=== PATIENT | female | born 1940 | race Caucasian/White ===

== ENCOUNTER 2019-04-14 13:13 | Inpatient (IN) ==
[2019-04-14 14:22] LABS: URINE SOURCE CATH
[2019-04-14 14:25] LABS: BILIRUBIN URINE NEGATIVE (NEGATIVE); BLOOD URINE NEGATIVE (NEGATIVE); COLOR YELLOW; GLUCOSE URINE NEGATIVE (NEGATIVE); KETONE URINE NEGATIVE (NEGATIVE); LEUKOCYTES URINE NEGATIVE (NEGATIVE); NITRITE URINE NEGATIVE (NEGATIVE); PH URINE 6.5; PROTEIN URINE 50 mg/dL (NEGATIVE); SP GRAVITY URINE 1.023; TURBIDITY URINE CLEAR (CLEAR); UROBILINOGEN URINE NORMAL (NORMAL)
[2019-04-14 14:26] LABS: UR EPITHELIAL CELLS <10 /HPF (<10); URINE BACTERIA NEGATIVE /HPF; URINE RBC <10 /HPF (<10); URINE WBC <10 /HPF (<10)
[2019-04-14 14:37] LABS: BASO# 0.03 X1000 (0.0-0.2); BASO% 0.1 % (0.0-0.8); EOS# 0.01 X1000 (0.0-0.7); HEMATOCRIT 40.6 % (37.0-47.0); IMM GRAN# 0.15 X1000 (0.0-0.04); IMM GRAN% 0.7 % (0.0-0.5); LYMPH# 1.58 X1000 (1.2-3.4); LYMPH% 7.1 % (20.5-51.1); MCH 28.6 PG (27-31); MCV 89.4 FL (81-99); MONO# 2.03 X1000 (0.11-0.59); MONO% 9.2 % (1.7-9.3); MPV 10.5 FL (7.4-10.4); NEUT# 18.31 X1000 (1.4-6.5); NEUT% 82.9 % (42.2-75.2); PLT 387 X1000 (130-400); RBC 4.54 XMIL (4.2-5.4); RDW 13.8 % (11.5-14.5); WBC 22.11 X1000 (4.8-10.8)
[2019-04-14 14:38] LABS: ANISOCYTOSIS 1+; INR 0.83; LYMPHS 7 % (21-51); MONO 9 % (1-9); PROTIME 11.8 Seconds (11.0-16.0); PTT 26.9 Seconds (22.3-41.8); SEGS 84 % (42-75)
--- NOTE | 2019-04-14 14:41 | Diag Imaging Result Doc PS360 ---
EXAM: CHEST-1 VIEW 04/14/2019 HISTORY: sepsis protocol TECHNIQUE: Erect AP portable at 1432 COMMENT: There is platelike opacity in the area of the lingula which has not changed since 09/19/2016 and is presumably due to fibrosis. Otherwise the appearance of the chest has not changed significantly. IMPRESSION: Stable chest. Electronically signed by Dontrell Yin 04/14/2019 2:38 PM
[2019-04-14 14:46] LABS: ESTIMATED GFR 53
[2019-04-14 15:15] LABS: AGAP 15; ALBUMIN 4.5 g/dL (3.5-5.0); ALKALINE PHOSPHATASE 92 U/L (32-104); BUN 27 mg/dL (8-22); CALCIUM 9.9 mg/dL (8.8-10.2); CHLORIDE 98 mmol/L (98-107); CK PROFILE 53 U/L (24-173); COSMO 289; GLUCOSE 139 mg/dL (70-104); GOT 13 U/L (10-30); GPT < 5 U/L (10-36); POTASSIUM 3.8 mmol/L (3.5-5.1); SODIUM 141 mmol/L (136-145); TCO2 28 mmol/L (25-35)
--- NOTE | 2019-04-14 15:41 | Diag Imaging Result Doc PS360 ---
EXAM: US ABDOMEN-COMPLETE HISTORY: pain TECHNIQUE: Abdominal ultrasound COMPARISON: CT from 01/18/2017 FINDINGS: The pancreas is obscured. There is fatty infiltration of the liver. It is difficult to penetrate the liver. The gallbladder is distended and contains a stone measuring at least 2.3 cm. The gallbladder wall is not thickened. The common bile duct measures 4 mm. Normal kidneys. No hydronephrosis. No splenomegaly. No ascites. The aorta and inferior vena cava are poorly seen. IMPRESSION: 1.Cholelithiasis 2.Fatty infiltration of the liver Electronically signed by Danny Shelton 04/14/2019 3:38 PM
[2019-04-14] MEDS ORDERED: ZOFRAN IV PRN (17:10)
[2019-04-14] MEDS ORDERED: SODIUM CHLORIDE 0.9% INJ SCH (17:15)
[2019-04-14] MEDS ORDERED: DEMEROL IV PRN (17:33)
[2019-04-14] MEDS: PROTONIX IV SCH (18:11)
[2019-04-14] MEDS: ZOSYN 3.375 GM in NS 50 ML IV SCH (18:16)
[2019-04-14] MEDS: NS 1,000 ML IV SCH (18:53)
--- NOTE | 2019-04-14 21:33 | HISTORY AND PHYSICAL ---
CHIEF COMPLAINT: Right upper quadrant pain. HISTORY OF PRESENT ILLNESS: This is a 79-year-old female who is a resident at [facility], in rehab secondary to an acute CVA. She presents to the ER with right upper quadrant pain, nausea and vomiting that started early in the morning, that was unrelieved by Zofran. She was found to have a white count of 20,000; therefore, she was sent to the emergency room for evaluation. Of note, she just finished 10 days of Levaquin for a urinary tract infection, although we do not have culture and sensitivity in our records. PAST MEDICAL HISTORY: 1. Recent CVA with left-sided weakness. 2. Gastroesophageal reflux disease. 3. Hyperlipidemia. 4. Hypertension. 5. Parkinson disorder. 6. Cardiomegaly. PAST SURGICAL HISTORY: Total hip and total knee replacements. SOCIAL HISTORY: She denies alcohol, tobacco or illicit drug use. She is a resident at [facility], in rehab. ALLERGIES: Codeine which causes nausea and vomiting. HOME MEDICATIONS: A list will be obtained by the nursing staff, and once verified we will review and restart as appropriate. REVIEW OF SYSTEMS: Discussed with the patient, with pertinent positives stated in the HPI. She denied any syncope, dizziness, chest pain, palpitations, any diarrhea or constipation, or any black or bloody vomitus or stools. PHYSICAL EXAMINATION: GENERAL: This is a 79-year-old female who is sitting up on the bed in the emergency room in no distress. VITAL SIGNS: Blood pressure is 177/89 with a heart rate of 97, respirations are 20, temperature is 98.4 degrees with O2 saturations 94% to 96%. EYES: Pupils are equal, round and react to light. EOMs are intact. Sclerae are anicteric. HEENT: Head is normocephalic, atraumatic. Mucous membranes are dry. NECK: Supple, with trachea midline. CARDIOVASCULAR: S1 and S2 appreciated. No murmur. Calves are nontender bilateral. PULMONARY: Breath sounds are clear with no increased work of breathing noted. Chest rises and falls symmetrically with respiration. GASTROINTESTINAL: Abdomen is soft. She is tender at the epigastric to right upper quadrant region, with bowel sounds in all 4 quadrants. NEUROLOGIC: She is alert and oriented. SKIN: Warm and dry. LABORATORY DATA: WBC is 22 with a hemoglobin of 13, hematocrit 40.6 and platelets 387,000. INR 0.83. Sodium is 141, potassium 3.8, BUN 27, creatinine 1 with a glucose of 139. Urinalysis is essentially negative. DIAGNOSTIC DATA: 1. Abdominal ultrasound reveals cholelithiasis. Gallbladder is distended, contains a stone measuring at least 2.3 cm. Gallbladder wall is not thickened. Common bile duct measures 4 mm. She has fatty infiltration of the liver. 2. Chest x-ray reveals stable chest. She has platelike opacity in the area of the lingula which has not changed since 2017, and is presumably due to fibrosis. ASSESSMENT: 1. Right upper quadrant pain. 2. Nausea and vomiting. 3. Leukocytosis. 4. Cholelithiasis with distended gallbladder. 5. Recent cerebrovascular accident with left-sided weakness. 6. Parkinson disorder. 7. Hypertension. 8. Recent urinary tract infection, with recent antibiotics. PLAN: The patient will be admitted and transferred to [facility]. Dr. Ham will be consulted. She will remain NPO until evaluated by Dr. Ham. We will give IV hydration with Zofran for nausea and Demerol for pain. We will continue with IV hydration. Antibiotic coverage of Zosyn. Further antibiotics will be culture-driven. Although urinalysis appears to be normal, we will order a urine culture as the patient has just completed 10 days of Levaquin for a UTI. Protonix IV. Check a CBC and CMP in the morning. Further treatments pending hospital course. Plan was discussed with Dr. Moran. Dictated by JEREMY Edward for Ricardo Moran MD cc: JEREMY Edward MD
--- NOTE | 2019-04-15 00:03 | HISTORY AND PHYSICAL ---
ADDENDUM: Patient seen and examined by myself. Full note dictated and discussed with nurse practitioner. Patient was just recently in the hospital with stroke-like symptoms and transitioned to [facility] for rehab. She started having abdominal pain, right upper quadrant pain last night. Currently, she has acute cholecystitis and therefore will be transitioned to [facility] for surgical input. Her blood pressures are elevated. We will start medications and we will get her blood pressure under control. Please see full note. cc: Ricardo Moran MD
[2019-04-15] MEDS: ZOSYN 3.375 GM in NS 50 ML IV SCH ×5 (00:58→23:50)
[2019-04-15 00:59] LABS: URINE SOURCE CATH
[2019-04-15 01:04] LABS: BILIRUBIN URINE NEGATIVE (NEGATIVE); BLOOD URINE TRACE (NEGATIVE); COLOR YELLOW; GLUCOSE URINE NEGATIVE (NEGATIVE); KETONE URINE NEGATIVE (NEGATIVE); LEUKOCYTES URINE NEGATIVE (NEGATIVE); NITRITE URINE NEGATIVE (NEGATIVE); PH URINE 6.5; PROTEIN URINE 50 mg/dL (NEGATIVE); SP GRAVITY URINE 1.024; TURBIDITY URINE CLEAR (CLEAR); UROBILINOGEN URINE NORMAL (NORMAL)
[2019-04-15 01:05] LABS: UR EPITHELIAL CELLS <10 /HPF (<10); URINE BACTERIA 1+ /HPF; URINE RBC <10 /HPF (<10); URINE WBC <10 /HPF (<10)
[2019-04-15] MEDS: NS 1,000 ML IV SCH ×4 (03:05→22:23)
[2019-04-15 08:38] LABS: ALB/GLOB RATIO 1.3; ALBUMIN 3.8 g/dL (3.5-5.0); CALCIUM 9.1 mg/dL (8.8-10.2); POTASSIUM 4.3 mmol/L (3.5-5.1); TOTAL BILIRUBIN 0.58 mg/dL (0.20-1.00); TOTAL PROTEIN 6.8 g/dL (6.3-8.3)
[2019-04-15 09:03] LABS: BASO# 0.03 X1000 (0.0-0.2); BASO% 0.1 % (0.0-0.8); EOS# 0.11 X1000 (0.0-0.7); EOS% 0.5 % (0.0-10.0); HEMATOCRIT 40.1 % (37.0-47.0); HEMOGLOBIN 12.6 g/dL (12.0-16.0); IMM GRAN# 0.15 X1000 (0.0-0.04); IMM GRAN% 0.7 % (0.0-0.5); LYMPH# 1.95 X1000 (1.2-3.4); LYMPH% 9.7 % (20.5-51.1); MCH 28.5 PG (27-31); MCHC 31.4 g/dL (33-37); MCV 90.7 FL (81-99); MONO# 1.67 X1000 (0.11-0.59); MONO% 8.3 % (1.7-9.3); MPV 10.6 FL (7.4-10.4); NEUT# 16.12 X1000 (1.4-6.5); NEUT% 80.7 % (42.2-75.2); PLT 327 X1000 (130-400); RBC 4.42 XMIL (4.2-5.4); WBC 20.03 X1000 (4.8-10.8)
[2019-04-15] MEDS ORDERED: MORPHINE IV PRN (11:09)
[2019-04-15 11:31] LABS: HYPOCHROM 2+; LYMPHS 12 % (21-51); MONO 8 % (1-9); SEGS 80 % (42-75)
[2019-04-15 11:32] LABS: ANISOCYTOSIS 1+; LARGE PLATELETS OCCASIONAL
[2019-04-15] MEDS ORDERED: SINEMET 25/100 PO SCH (11:45)
[2019-04-15] MEDS ORDERED: SINEMET CR 25/100 PO SCH (14:00)
[2019-04-15] MEDS: SINEMET 25/100 PO SCH ×3 (15:36→23:50)
--- NOTE | 2019-04-15 17:39 | PROGRESS NOTE ---
DATE: 04/15/2019 INTERVAL HISTORY: The patient's right upper quadrant pain currently resolved. No further nausea or vomiting. No acute events overnight. No new complaints. REVIEW OF SYSTEMS: Twelve-point review of systems negative except as per interval history. LABORATORY DATA: WBC 20.0, hemoglobin 12.6, hematocrit 40.1, platelets 327,000. Sodium 143, potassium 4.3, bicarbonate 26, BUN 22, creatinine 1, glucose 121. Urinalysis essentially unremarkable. OBJECTIVE: Vital signs: T-max 99 degrees, pulse 87, respirations 16, blood pressure 163/76, O2 saturation 97% on room air.General: No acute distress. HEENT: Normocephalic, atraumatic. Moist mucous membranes. Cardiovascular: Regular rate and rhythm. No murmurs noted. Pulmonary: Clear to auscultation bilaterally. No wheezing, rales or rhonchi. Abdomen soft. Minimal epigastric to right upper quadrant tenderness. Bowel sounds positive. Extremities: Peripheral pulses intact. No clubbing or cyanosis. Neurologic: Cranial nerves grossly intact. Minimal left-sided weakness, but no new focal deficits. Psychiatric: Normal mood and affect. Awake, alert and oriented x3. ASSESSMENT AND PLAN: 1. Right upper quadrant pain, possible cholecystitis versus biliary colic. Liver function tests remain normal. Imaging showing fatty liver and significant cholelithiasis, with some distention of the gallbladder but no thickening or pericholecystic fluid, or dilated ducts. The patient's pain is currently resolved. Uncertain if this is early cholecystitis versus biliary colic. Surgery on board. Planning for HIDA scan tomorrow with possible surgery on Wednesday, depending on how she does and what her HIDA scan looks like. Given leukocytosis, we will continue antibiotics with Zosyn for now. 2. Fatty liver, aware. 3. Recent cerebrovascular accident. We will hold aspirin for now in case she goes to surgery, but as soon as we know one way or the other or shortly after surgery, we will restart aspirin. 4. Hypertension. Holding home hydrochlorothiazide currently until we are sure that she is not going to have any further vomiting. Monitor blood pressure. 5. Hyperlipidemia. Continue atorvastatin. 6. Parkinson disease. Continue home Sinemet. 7. Gastroesophageal reflux disease. Continue proton pump inhibitor.
[2019-04-15] MEDS: EFFEXOR XR PO SCH (17:58)
[2019-04-15] MEDS: PROTONIX IV SCH (17:58)
--- NOTE | 2019-04-15 19:17 | GENERAL SURGERY CONSULTATION ---
DATE: 04/15/2019 REASON FOR CONSULTATION: Acute cholecystitis. HISTORY OF PRESENT ILLNESS: This is a 79-year-old female who is resident [facility] secondary to recent acute stroke. She has only been there for a few weeks and began having right upper quadrant pain with nausea and vomiting over the last couple of days. She was brought to the emergency room for further evaluation and found to have a white count of 20,000. An ultrasound revealed a distended gallbladder with a large gallstone and she was admitted for further evaluation and care. She also apparently just finished a course of Levaquin for UTI. Apparently overnight she has become more disoriented and could not give me any significant history so all my history is by phone consultation with the ER physician and the hospitalist history and physical. PAST MEDICAL HISTORY: Recent stroke with left-sided weakness, gastroesophageal reflux disease, hyperlipidemia, hypertension, Parkinson disorder, cardiomegaly. PAST SURGICAL HISTORY: Total hip and knee replacements. SOCIAL HISTORY: Negative for tobacco, alcohol or illicit drug use. ALLERGIES: Codeine which causes nausea and vomiting. HOME MEDICATIONS: Hydrochlorothiazide, esomeprazole, Tactinal , Lipitor, carbidopa levodopa, docusate, Effexor, aspirin, Requip. FAMILY HISTORY: Unknown. REVIEW OF SYSTEMS: Unobtainable. PHYSICAL EXAMINATION: Vital Signs: Temperature 98.2 degrees, pulse 87, respirations 16, blood pressure 163/76, O2 saturation 97%. General: She is awake and alert but not oriented to place, situation, time. She does know her name. She is in no acute distress. HEENT: Normocephalic, atraumatic. Extraocular muscles intact. Pupils equal, round, reactive to light. Sclerae anicteric. Neck: Supple. No thyromegaly. Lymph: No cervical, supraclavicular or periumbilical lymph nodes appreciated. CV: Regular rate and rhythm. Respiratory: Bilateral breath sounds. No work of breathing. Gastrointestinal: Soft, nondistended. No organomegaly or mass. She is tender in the epigastric right upper quadrant without rebound or guarding. Extremities: No clubbing, cyanosis, or edema. Skin: Warm and dry. No rash. Musculoskeletal: Moves all extremities equally well. LABORATORY: White blood cell count 20,000 this morning, it was 22,000 yesterday, hemoglobin and hematocrit are normal. INR normal. Metabolic profile reviewed and notable for creatinine 1.0. Liver function tests are normal. Urinalysis is negative. IMAGING: Abdominal ultrasound was discussed above in HPI. Please see the HPI. ASSESSMENT AND PLAN: 79-year-old female with right upper quadrant pain, nausea, vomiting, leukocytosis and a large gallstone with concern for early acute cholecystitis. She also has recently had a stroke. Therefore, we will proceed cautiously. I agree with the Zosyn and IV fluid hydration. We are planning a HIDA scan on Wednesday. If it shows cystic duct obstruction then we will certainly need to proceed with laparoscopic cholecystectomy. If she does not have cystic duct obstruction we may try to treat her conservatively and let her continue to recover from the stroke. cc: Jose Ham MD
[2019-04-15] MEDS: COLACE PO SCH (21:00)
[2019-04-15] MEDS: LIPITOR PO SCH (21:00)
[2019-04-15] MEDS: REQUIP PO SCH (21:00)
[2019-04-15] MEDS: DEBROX OTIC DROPS BOTH EARS PRN (22:05)
[2019-04-16] MEDS: NS 1,000 ML IV SCH ×3 (04:16→21:03)
[2019-04-16] MEDS: ZOSYN 3.375 GM in NS 50 ML IV SCH ×3 (06:25→17:30)
[2019-04-16] MEDS: PRILOSEC PO SCH (06:26)
[2019-04-16] MEDS: SINEMET 25/100 PO SCH ×3 (06:26→17:30)
[2019-04-16 08:09] LABS: BASO# 0.03 X1000 (0.0-0.2); BASO% 0.2 % (0.0-0.8); EOS# 0.33 X1000 (0.0-0.7); HEMATOCRIT 36.5 % (37.0-47.0); HEMOGLOBIN 11.5 g/dL (12.0-16.0); IMM GRAN# 0.15 X1000 (0.0-0.04); IMM GRAN% 0.9 % (0.0-0.5); LYMPH# 1.67 X1000 (1.2-3.4); LYMPH% 10.2 % (20.5-51.1); MCH 28.7 PG (27-31); MCHC 31.5 g/dL (33-37); MONO# 1.62 X1000 (0.11-0.59); MONO% 9.8 % (1.7-9.3); MPV 10.7 FL (7.4-10.4); NEUT# 12.65 X1000 (1.4-6.5); NEUT% 76.9 % (42.2-75.2); PLT 310 X1000 (130-400); RBC 4.01 XMIL (4.2-5.4); WBC 16.45 X1000 (4.8-10.8)
[2019-04-16 09:04] LABS: ESTIMATED GFR 60
[2019-04-16] MEDS: EFFEXOR XR PO SCH (09:10)
[2019-04-16] MEDS: REQUIP PO SCH ×2 (09:10→21:04)
[2019-04-16] MEDS: COLACE PO SCH ×2 (09:10→21:04)
[2019-04-16 09:18] LABS: AGAP 10; ALBUMIN 3.1 g/dL (3.5-5.0); ALKALINE PHOSPHATASE 78 U/L (32-104); BUN 18 mg/dL (8-22); CALCIUM 8.5 mg/dL (8.8-10.2); CHLORIDE 106 mmol/L (98-107); COSMO 286; CREATININE 0.9 mg/dL (0.5-0.9); GLUCOSE 113 mg/dL (70-104); GOT 9 U/L (10-30); GPT < 5 U/L (10-36); POTASSIUM 3.7 mmol/L (3.5-5.1); SODIUM 142 mmol/L (136-145); TCO2 26 mmol/L (25-35); TOTAL BILIRUBIN 0.38 mg/dL (0.20-1.00); TOTAL PROTEIN 6.1 g/dL (6.3-8.3)
--- NOTE | 2019-04-16 11:17 | Diag Imaging Result Doc PS360 ---
EXAM: CT ABD/PELVIS W/PO AND IV CON 04/16/2019 HISTORY: diffuse abdominal pain TECHNIQUE: This exam was performed using automated exposure control, adjustment of mA or kV according to patient size, and/or use of iterative reconstruction technique. COMMENT: There is atelectasis in both lower lobes dependently. This was not the case at the time the previous study of 01/18/2017. There is a nodular opacity present in the inferior lingula on image 12 measuring less than 5 mm which was not clearly present at the time the previous study. There was a nodular opacity in the right lower lobe on the previous study on image 30 which is not identifiable on the current study. There is a right pleural effusion which was not previously present. There is ascites which was not present previously. The gallbladder is markedly distended and inflamed in appearance. There are multiple cholesterol stones at least two of which exceed 2 cm in size. The adrenal glands are not enlarged. The aorta is not distended. The mesenteric and renal arteries are patent. The spleen is not enlarged. There is some edema surrounding the pancreatic head and proximal body. There is a large amount of stool in the colon. The small bowel is not distended. The liver is otherwise unremarkable in appearance. The kidneys are without evidence of hydronephrosis. There is a largely calcified mass in the lower pole of the right kidney which has not changed significantly in size since the previous study. Pelvis: There is no evidence of appendicitis. There is diverticulosis in the sigmoid colon without diverticulitis. There is no free fluid. There is stool in the rectum. There is a left hip prosthesis. There is vacuum phenomenon in the sacroiliac joints and degenerative facet disease at L5-S1 bilaterally. There are degenerative disc changes in the lumbar spine. IMPRESSION: Cholelithiasis and acute cholecystitis with upper abdominal ascites, right pleural effusion, and bibasilar atelectasis. Possibility of mild pancreatitis cannot be excluded although the inflammatory changes are probably a result of the cholecystitis. Electronically signed by Dontrell Yin 04/16/2019 11:15 AM
--- NOTE | 2019-04-16 15:09 | GENERAL SURGERY PROGRESS NOTE ---
DATE: 04/16/2019 SUBJECTIVE: The patient continues to report abdominal pain that she describes as all over, and worsened to palpation. OBJECTIVE: Vital Signs: She is afebrile, pulse is 96, blood pressure 151/72, O2 saturation 97%. General: Awake, alert, oriented x3. No acute distress. GI: Soft, not particularly distended, but she is tender to palpation diffusely, but more so in the right upper quadrant. LABORATORY DATA: White cell count 16,000, hemoglobin 11, hematocrit 36, platelet count 310,000. ASSESSMENT AND PLAN: A 79-year-old female with abdominal pain, especially in the right upper quadrant, leukocytosis, and a known gallstone. There is concern for early acute cholecystitis. Given her diffuse pain and tenderness, I am also going to check a CT scan to rule out any other bowel pathology. We are planning a HIDA scan tomorrow. We are trying to treat her conservatively given her recent stroke. However, she does seem to have pretty good generalized strength. She is slightly weak on the right side. cc: Jose Ham MD
[2019-04-16] MEDS ORDERED: APRESOLINE IV PRN (15:19)
[2019-04-16] MEDS: PROTONIX IV SCH (17:30)
--- NOTE | 2019-04-16 18:27 | PROGRESS NOTE ---
DATE: 04/16/2019 INTERVAL HISTORY: The patient remains relatively asymptomatic. Currently, no further vomiting. Only minimal nausea intermittently controlled by Zofran. No acute events. REVIEW OF SYSTEMS: Twelve point review of systems negative except as per interval history. LABS: WBC 16.4, hemoglobin 11.5, hematocrit 36.5, platelets 310,000. Basic metabolic panel unremarkable. Bilirubin 0.38, AST 9, ALT less than 5, alkaline phosphatase 78. IMAGING: CT abdomen pelvis with cholelithiasis and acute cholecystitis with upper abdominal ascites, right pleural effusion. VITALS: T-max 99.6 degrees, pulse 97, blood pressure 188/90, O2 saturation 97% on room air. PHYSICAL EXAMINATION: General: No acute distress. Vitals: As above. HEENT: Normocephalic, atraumatic. Moist mucous membranes. No cervical adenopathy. Cardiovascular: Regular rate and rhythm. No murmurs noted. Pulmonary: Clear to auscultation bilaterally. No wheezing, rales, or rhonchi. Abdomen: Soft. Minimal epigastric to right upper quadrant tenderness remains. Bowel sounds decreased, but present. Extremities: Peripheral pulses intact. No clubbing or cyanosis. Neurologic: Cranial nerves grossly intact. Low-frequency tremor consistent with Parkinson's stable. No new focal deficits. Psychiatric: Slightly flat affect but awake, alert, oriented x3. ASSESSMENT AND PLAN: 1. Right upper quadrant pain, likely cholecystitis. Liver function tests remain normal, but imaging suggestive of acute cholecystitis in a patient with significant leukocytosis. The patient's pain remains improved. Continue Zosyn. Surgery on board and will likely take her gallbladder out tomorrow. 2. Fatty liver, aware. 3. Recent stroke. Aspirin on hold for likely surgery tomorrow. We will plan on restarting postop. 4. Hypertension. Holding home hydrochlorothiazide currently. She will likely be NPO after midnight. We will plan on restarting postop. Has had some elevations in her blood pressure, but most systolics in the 140s to 150s. Count is markedly elevated. We will start some hydralazine. 5. Hyperlipidemia. Continue atorvastatin. 6. Parkinson's. Continue home Sinemet. 7. Gastroesophageal reflux disease. Continue proton pump inhibitor.
[2019-04-16] MEDS: LIPITOR PO SCH (21:04)
[2019-04-17] MEDS: SINEMET 25/100 PO SCH ×4 (00:47→18:04)
[2019-04-17] MEDS: ZOSYN 3.375 GM in NS 50 ML IV SCH ×4 (00:47→18:03)
[2019-04-17] MEDS: PRILOSEC PO SCH (06:20)
[2019-04-17] MEDS: NS 1,000 ML IV SCH ×2 (06:20→18:03)
[2019-04-17] MEDS ORDERED: DIPRIVAN 1% ONE (08:58)
[2019-04-17] MEDS ORDERED: QUELICIN (DOSE) ONE (08:58)
[2019-04-17] MEDS ORDERED: SENSORCAINE 0.25%/EPI 1:200,000 ONE (09:37)
[2019-04-17] MEDS ORDERED: LR 1,000 ML ONE (09:37)
[2019-04-17] MEDS ORDERED: SODIUM CHLORIDE 0.9% ONE (09:37)
[2019-04-17] MEDS ORDERED: FENTANYL ONE (10:39)
[2019-04-17] MEDS ORDERED: ZOFRAN ONE (10:39)
[2019-04-17] MEDS ORDERED: OFIRMEV 1000 MG/ISOTONIC SOLN 1,000 MG/100 ML BOTTLE ONE (10:39)
[2019-04-17] MEDS ORDERED: DECADRON ONE (10:39)
[2019-04-17] MEDS ORDERED: TORADOL ONE (10:39)
[2019-04-17] MEDS ORDERED: ZEMURON ONE (10:52)
[2019-04-17] MEDS ORDERED: NEOSTIGMINE ONE (10:55)
[2019-04-17] MEDS ORDERED: ROBINUL ONE (10:55)
--- NOTE | 2019-04-17 11:33 | Diag Imaging Result Doc PS360 ---
OPERATIVE CHOLANGIOGRAM - 04/17/2019 INDICATION: TONE TECHNIQUE: The exam was performed by the patient's surgeon. Total fluoroscopy time was 10.4 seconds. One image was obtained. COMPARISON: CT from 04/16/2019 FINDINGS: Contrast was infused into the cystic duct. This outlines a normal common bile duct. There is good passage of contrast into the duodenum. No strictures or filling defects. IMPRESSION: No complication. Electronically signed by Declan Holder 04/17/2019 11:31 AM
--- NOTE | 2019-04-17 12:34 | OPERATIVE NOTE ---
PROCEDURE DATE: 04/17/2019 PREOPERATIVE DIAGNOSIS: Acute cholecystitis. POSTOPERATIVE DIAGNOSIS: Acute cholecystitis. PROCEDURE: Laparoscopic cholecystectomy with operative cholangiogram. SURGEON: Dr. Jose Ham. DIVERSIONAL THERAPIST'S ASSISTANT: Ning Aparicio, Medical Student 3. ANESTHESIA: General. ESTIMATED BLOOD LOSS: 50 mL. COMPLICATIONS: None apparent. SPECIMENS: Gallbladder. FINDINGS: The gallbladder was acutely inflamed. The cholangiogram revealed normal proximal hepatic radicals, as well as distal common bile duct with flow of contrast seen in the duodenum without filling defects or stenoses. TECHNIQUE: The patient was brought to the operating room and placed supine on the table. General anesthesia was induced. She was prepped and draped in usual sterile fashion. Total of 0.25% Marcaine with epinephrine was used to anesthetize our incisions. An 11 mm incision was made above the umbilicus. The fascia was exposed and incised sharply. Entry into the peritoneal cavity was obtained under direct vision with the Optiview device. Pneumoperitoneum was established. The camera was inserted. There was no evidence of injury to underlying structures. She was placed in reverse Trendelenburg and left rotation. Three 5 mm incision ports were placed under direct vision in the right upper quadrant and below the costal margin. The omentum was adherent to the gallbladder, but relatively easily swept off of it. The wall of the gallbladder was thickened. It was very swollen. It was hyperemic and even on the verge of gangrenous. We went ahead and punctured it and suctioned out some bile for better grasping and retraction of the gallbladder. To hold down the omentum and duodenum, I put in a new 11 mm port in the right lower abdomen and a fan was brought in through that for better exposure. I then dissected out the triangle of Calot with the [place] forceps and hook cautery, as well as the Kittner dissectors and blunt tip of the suction wine and spirits clerk until the critical view was obtained. The gallbladder- liver junction was seen. There were only 2 structures entering the gallbladder; the cystic duct and cystic artery. The artery was clipped proximally and distally and incised between with scissors. A clip was placed on the distal cystic duct. A ductotomy was made proximal to this with scissors. A 14-gauge Angiocath was passed through the right upper quadrant. The Taut cholangiogram catheter was passed through this into the cystic duct and held in place with a clip. The cholangiogram was performed with findings as noted above. The clip, catheter, and Angiocath were removed. Three clips were placed on the proximal cystic duct; it was divided distal to these with scissors. The gallbladder was then removed from the liver bed using hook cautery. There was minor bleeding from the liver bed which was easily controlled with cautery. I then irrigated with saline and suctioned out the old blood and irrigation. Reinspection revealed no further bleeding or any bile leakage. The gallbladder was placed in an EndoCatch bag. The right lower quadrant port site fascia was closed with 0 Vicryl under direct vision using the Carlton-Juan device. We then brought the gallbladder and bag up through the umbilical port site, and desufflated the abdomen and removed our ports. The umbilical fascia was closed with 0 Vicryl in a running fashion. The skin was closed with 4-0 subcuticular Biosyn and Steri-Strips. There were no apparent complications. She was awakened in stable condition and transferred to the recovery room. cc: Jose Ham MD
[2019-04-17] MEDS ORDERED: NORCO-7.5 PO PRN (13:03)
[2019-04-17] MEDS: COLACE PO SCH ×2 (16:07→21:41)
[2019-04-17] MEDS: EFFEXOR XR PO SCH (16:07)
[2019-04-17] MEDS: REQUIP PO SCH ×2 (16:08→21:41)
[2019-04-17] MEDS: PROTONIX IV SCH (18:04)
--- NOTE | 2019-04-17 18:15 | PROGRESS NOTE ---
DATE: 04/17/2019 INTERVAL HISTORY: Patient is status post laparoscopic cholecystectomy. Doing well postop. Pain well controlled. No other acute events. No new complaints. REVIEW OF SYSTEMS: Twelve point review of systems negative except as per interval history. VITAL SIGNS: T-max 100.2 degrees, pulse 78, respirations 16, blood pressure 160/55, O2 saturation 96% on 3 L by nasal cannula. PHYSICAL EXAMINATION: General: No acute distress. Vital signs: As above. HEENT: Normocephalic, atraumatic. Moist mucous membranes. No cervical adenopathy. Cardiovascular: Regular rate and rhythm. No murmurs noted. Pulmonary: Clear to auscultation bilaterally. No wheezing, rales, or rhonchi. Abdomen: Laparoscopic incisions bandaged. Bowel sounds decreased but present. Minimal expected postop tenderness. Extremities: Peripheral pulses intact. No clubbing or cyanosis. Neurologic: Cranial nerves grossly intact. Coarse tremor, stable. Psychiatric: Asleep but easily arousable. Cooperative. Responses appropriate. ASSESSMENT AND PLAN: 1. Cholecystitis. Status post laparoscopic cholecystectomy today. Continue Zosyn for now. Assuming she does well then hopefully home tomorrow. 2. Fatty liver. Aware. 3. Recent stroke. Surgery today so will restart aspirin in the morning. 4. Hypertension. Patient's blood pressure has been fairly consistently moderately elevated. We will go ahead and restart her home hydrochlorothiazide in the morning. 5. Hyperlipidemia. Continue atorvastatin. 6. Parkinson disease. Continue home Sinemet. 7. Gastroesophageal reflux disease. Continue PPI.
[2019-04-17] MEDS: LIPITOR PO SCH (21:41)
[2019-04-18] MEDS: SINEMET 25/100 PO SCH ×4 (00:22→17:48)
[2019-04-18] MEDS: ZOSYN 3.375 GM in NS 50 ML IV SCH ×4 (00:22→17:49)
[2019-04-18] MEDS: ASPIRIN PO SCH (09:20)
[2019-04-18] MEDS: COLACE PO SCH ×2 (09:20→21:08)
[2019-04-18] MEDS: EFFEXOR XR PO SCH (09:20)
[2019-04-18] MEDS: HYDROCHLOROTHIAZIDE PO SCH (09:20)
[2019-04-18] MEDS: REQUIP PO SCH ×2 (09:21→21:08)
[2019-04-18 11:42] LABS: BASO# 0.02 X1000 (0.0-0.2); BASO% 0.1 % (0.0-0.8); EOS% 0.7 % (0.0-10.0); HEMATOCRIT 30.9 % (37.0-47.0); HEMOGLOBIN 9.5 g/dL (12.0-16.0); IMM GRAN# 0.11 X1000 (0.0-0.04); IMM GRAN% 0.8 % (0.0-0.5); LYMPH# 1.73 X1000 (1.2-3.4); MCH 28.2 PG (27-31); MCHC 30.7 g/dL (33-37); MCV 91.7 FL (81-99); MONO% 10.4 % (1.7-9.3); MPV 10.5 FL (7.4-10.4); NEUT# 11.01 X1000 (1.4-6.5); PLT 321 X1000 (130-400); RBC 3.37 XMIL (4.2-5.4); WBC 14.47 X1000 (4.8-10.8)
[2019-04-18] MEDS: NS 1,000 ML IV SCH (12:21)
[2019-04-18 12:29] LABS: ESTIMATED GFR 48
[2019-04-18 12:35] LABS: AGAP 12; ALB/GLOB RATIO 1.1; ALBUMIN 3.2 g/dL (3.5-5.0); ALKALINE PHOSPHATASE 91 U/L (32-104); BUN 22 mg/dL (8-22); CALCIUM 8.3 mg/dL (8.8-10.2); CHLORIDE 108 mmol/L (98-107); COSMO 291; CREATININE 1.1 mg/dL (0.5-0.9); GLUCOSE 115 mg/dL (70-104); GOT 22 U/L (10-30); GPT < 5 U/L (10-36); POTASSIUM 3.6 mmol/L (3.5-5.1); SODIUM 144 mmol/L (136-145); TCO2 24 mmol/L (25-35); TOTAL BILIRUBIN 0.25 mg/dL (0.20-1.00)
[2019-04-18] MEDS: PROTONIX IV SCH (17:47)
--- NOTE | 2019-04-18 19:35 | PROGRESS NOTE ---
DATE: 04/18/2019 INTERVAL HISTORY: Patient status post laparoscopic cholecystectomy yesterday. Doing well postop. Advanced to GI soft diet but had not tried it yet. Pain well controlled. No new complaints. No other acute events. REVIEW OF SYSTEMS: Twelve point review of systems negative except as per interval history. LABS: WBC 14.4, hemoglobin 9.5, hematocrit 30.9, platelets 321,000. Sodium 144, potassium 3.6, BUN 22, creatinine 1.1, glucose 115. VITALS: Temperature T-max 98.6 degrees, pulse 77, respirations 18, blood pressure 150/55, O2 saturation 95% on room air. PHYSICAL EXAMINATION: General: No acute distress. Vitals as above. HEENT: Normocephalic, atraumatic. Moist mucous membranes. No cervical adenopathy. Cardiovascular: Regular rate and rhythm. No rubs or gallops noted. Pulmonary: Clear to auscultation bilaterally. No wheezing, rales or rhonchi. Abdomen: Laparoscopic incisions clean, dry, intact. Bowel sounds present. Extremities: Peripheral pulses intact. No clubbing or cyanosis. Neurologic: Cranial nerves grossly intact. Course tremor stable. Psychiatric: Asleep but easily arousable, cooperative and responses are appropriate slightly flat affect. ASSESSMENT AND PLAN: 1. Cholecystitis. Status post laparoscopic cholecystectomy. Continue Zosyn for now. Advancing diet and if she does well with that then hopefully back to her facility tomorrow. 2. Fatty liver, aware. 3. Recent stroke. We have restarted her home aspirin. 4. Hyperlipidemia. Continue atorvastatin. 5. Parkinson disease. Continue Sinemet. 6. Gastroesophageal reflux disease. Continue PPI. DISPOSITION: Patient from facility doing well. Will make sure she tolerates diet and plan on discharge back to her facility tomorrow if there are no issues.
[2019-04-18] MEDS: LIPITOR PO SCH (21:08)
--- NOTE | 2019-04-18 21:34 | GENERAL SURGERY PROGRESS NOTE ---
DATE: 04/18/2019 SUBJECTIVE: The patient is doing okay today. She feels better much improved abdominal pain. No nausea or vomiting. No chest pain or shortness of breath. She has not ambulated yet or voided on her own. OBJECTIVE: Vital Signs: She is afebrile. Vital signs are stable. General: She is awake, alert, in no acute distress. Respiratory: No work of breathing. CV: Regular rate and rhythm. GI: Soft, appropriately tender. Incision is clean, dry, and intact. LABORATORY: White cell count 14, hemoglobin 9.5, hematocrit 30.9. Electrolytes reviewed and unremarkable. ASSESSMENT AND PLAN: A 79-year-old female status post laparoscopic cholecystectomy. She is improving. We will wean her oxygen off as tolerated. Remove the Velazquez catheter. Encourage her to ambulate and advance her diet as tolerated. cc: Jose Ham MD
[2019-04-19] MEDS: ZOSYN 3.375 GM in NS 50 ML IV SCH ×3 (00:34→12:00)
[2019-04-19] MEDS: SINEMET 25/100 PO SCH ×3 (00:34→11:59)
[2019-04-19] MEDS: NS 1,000 ML IV SCH (02:14)
[2019-04-19] MEDS: REQUIP PO SCH (09:59)
[2019-04-19] MEDS: EFFEXOR XR PO SCH (10:00)
[2019-04-19] MEDS: HYDROCHLOROTHIAZIDE PO SCH (10:00)
[2019-04-19] MEDS: ASPIRIN PO SCH (10:00)
[2019-04-19] MEDS: COLACE PO SCH (10:00)
[2019-04-19] MEDS: DEBROX OTIC DROPS BOTH EARS PRN (12:00)
--- NOTE | 2019-04-19 12:18 | DISCHARGE SUMMARY ---
ADMISSION DATE: 04/14/2019 DISCHARGE DATE: 04/19/2019 DISPOSITION: Back to [facility]. CONSULTATIONS DURING THIS ADMISSION: Surgery was consulted. The patient was seen by Dr. Ham. INVASIVE PROCEDURES DONE DURING THIS ADMISSION: Laparoscopic cholecystectomy with intraoperative cholangiogram was done by Dr. Ham on 04/17/2019. IMAGING STUDIES OF SIGNIFICANCE: 1. A chest x-ray was unremarkable. 2. An ultrasound of the abdomen did show cholelithiasis, fatty infiltration of the liver. 3. CT scan of the abdomen did show cholelithiasis with acute cholecystitis. 4. An intraoperative cholangiogram showed no complication. ADMISSION DIAGNOSES: 1. Right upper quadrant pain, nausea, vomiting. 2. Leukocytosis. 3. Cholelithiasis with dilated gallbladder. 4. Recent CVA with left-sided weakness. 5. Parkinson's disease. DISCHARGE DIAGNOSES: 1. Acute symptomatic calculous cholecystitis. 2. Recent cerebrovascular accident with left-sided hemiparesis. 3. Parkinson's disease. 4. Hypertension. 5. Enterococcus faecalis (vancomycin susceptible Enterococci urinary tract infection). 6. 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 DISCHARGE MEDICATIONS: 1. Hydrochlorothiazide 12.5 p.o. daily. 2. Esomeprazole 20 mg p.o. daily. 3. Atorvastatin 20 mg p.o. daily. 4. Effexor 150 mg p.o. daily. 5. Aspirin 325 mg p.o. daily. 6. Ropinirole 4 mg p.o. b.i.d. 7. Levodopa/carbidopa. 8. Augmentin 875 b.i.d. for 3 more days. PRESENTING COMPLAINT: Right upper quadrant pain. HISTORY OF PRESENTING COMPLAINT: Ms. Potter is a 79-year-old, female with multiple comorbidities, including Parkinson's, CVA with left-sided weakness and dysphasia, who came to the emergency room because of abdominal pain. The patient was found to have elevated white cell count. Imaging studies were done, which revealed cholelithiasis with possible cholecystitis. The patient was transferred from [facility] for higher level of care. HOSPITAL COURSE: Ms. Potter was admitted to the medical floor, was initially kept n.p.o., IV fluids, and broad-spectrum IV antibiotics. Surgery was consulted. The patient was seen by Dr. Ham, who evaluated the patient, and a decision was made to intervene. Ms. Potter successfully underwent laparoscopic cholecystectomy with intraoperative cholangiogram, which was normal. Postoperatively, she continues to improve. She has been asymptomatic. Abdominal pain has improved. She is tolerating between 25% to 75% of her meals. She is having adequate urine output, and she has had a regular bowel movement as well. We think Ms. Potter is now stable enough to be discharged back to the rehab to continue with her physical therapy. All the discharge instructions were discussed with her. Her brother and her were both at the bedside at the time of the encounter. They all voiced understanding of the discharge recommendations. TIME SPENT: Time spent for discharge was 38 minutes. cc: MD Jose Patrick MD Lindsay E. Smith, MD
[2019-04-19 12:20] VITALS: BP 156/69
--- NOTE | 2019-04-19 18:32 | GENERAL SURGERY PROGRESS NOTE ---
DATE: 04/19/2019 SUBJECTIVE: The patient says she feels much better. She denies abdominal pain, nausea, or vomiting. She ate a burger last night. She is off oxygen now. OBJECTIVE: She is afebrile. Vital signs are stable.General: She is awake and alert. She is pleasant. She does seem mildly confused. It is a little hard to follow her conversation. Her speech is mildly stuttering, which seems a little worse to me, but per her family member is similar to the way she was prior to admission. GI: Soft and nontender. Incision is clean, dry, and intact. Respiratory: No work of breathing. LABORATORY: None today. ASSESSMENT AND PLAN: A 79-year-old female status post laparoscopic cholecystectomy now postop day 2. She again is less than 1 month out from a left hemispheric stroke. She was also admitted with a urinary tract infection present on admission. It is sensitive to penicillin. She has been on Zosyn throughout her hospital stay. I think she is stable enough for discharge back to Rehab to continue her post stroke recovery, and can follow up in my office in a couple of weeks. cc: Jose Ham MD
== END 2019-04-19 16:16 | DRG 854 ==
LOC: P.ED 13:13 → SUATTDRO 23:09 → 3N 23:09
PROVIDERS: ATTEND Internal Medicine